=== PATIENT | female | born 1990 | race Caucasian/White ===

== ENCOUNTER 2021-02-07 21:04 | Emergency (ER) | payer BC, OTHER ==
--- NOTE | 2021-02-07 21:23 | EDM.PDOC ---
ED HPI GENERAL MEDICAL PROBLEM - General Stated Complaint: PAIN DOWN L SIDE Time Seen by Provider: 02/07/21 21:15 Source of Information: Reports: Patient History Limitations: Reports: No Limitations - History of Present Illness INITIAL COMMENTS - FREE TEXT/NARRATIVE: Patient comes emergency department today with complaints of pain in the very low left abdomen. This patient is 4 para 3. Primary care optical designer is in [place]. This patient approximately 2 hours prior to arrival developed a 2/10 pain at the crease of her leg in her lower left abdomen. Pain kind of comes and goes on its own. Nothing makes it worse or better. She has no change in the functionality of her lower extremities. No loss of bowel or bladder. No paresthesias. She has not tried any Tylenol for the pain. She has no other abdominal pain. She has no nausea or vomiting. No fever no chills. No hematuria dysuria urinary frequency. No flank pain. No vaginal bleeding or discharge. left lower abdomen Pain Score (Numeric/FACES): 3 - Related Data Allergies Allergy/AdvReac Type Severity Reaction Status Date / Time No Known Allergies Allergy Verified 04/20/15 17:36 Home Meds: Home Meds . [No Known Home Meds] 02/07/21 [History] Past Medical History - Past Health History Medical/Surgical History: Denies Medical/Surgical History ED ROS GENERAL - Review of Systems Review Of Systems: Comprehensive ROS is negative, except as noted in HPI. ED EXAM, GENERAL - Physical Exam Exam: See Below Exam Limited By: No Limitations General Appearance: Alert, WD/WN, No Apparent Distress, Obese (morbidly) Respiratory/Chest: No Respiratory Distress, Lungs Clear, Normal Breath Sounds, No Accessory Muscle Use, Chest Non-Tender Cardiovascular: Normal Peripheral Pulses, Regular Rate, Rhythm, No Murmur GI/Abdominal: Normal Bowel Sounds, Soft, Non-Tender, No Distention, No Abnormal Bruit, No Mass Back Exam: Normal Inspection, Full Range of Motion. No: CVA Tenderness (L), CVA Tenderness (R) Extremities: Normal Inspection, Normal Range of Motion, Non-Tender, No Pedal Edema, Normal Capillary Refill Neurological: Alert, Oriented, CN II-XII Intact, Normal Gait, Normal Reflexes, No Motor/Sensory Deficits, Other (Negative straight leg raise bilaterally) Psychiatric: Normal Affect, Normal Mood Skin Exam: Warm, Dry, Intact, Normal Color, No Rash Course - Vital Signs Last Recorded V/S: Last Vital Signs Temp 97.9 F 02/07/21 21:04 Pulse 80 02/07/21 21:04 Resp 16 02/07/21 21:04 BP 142/82 H 02/07/21 21:04 Pulse Ox 100 02/07/21 21:04 - Orders/Labs/Meds Labs: Laboratory Tests 02/07/21 Range/Units 21:20 Urine Color Yellow (YELLOW) Urine Appearance Clear (CLEAR) Urine pH 5.5 (5.0-8.0) Ur Specific [place] 1.015 Urine Protein Negative (NEGATIVE) mg/dL Urine Glucose (UA) Negative (NEGATIVE) mg/dL Urine Ketones Negative (NEGATIVE) mg/dL Urine Occult Blood Negative (NEGATIVE) Urine Nitrite Negative (NEGATIVE) Urine Bilirubin Negative (NEGATIVE) Urine Urobilinogen 1.0 (0.2) EU/dL Ur Leukocyte Esterase Negative (NEGATIVE) - Re-Assessments/Exams Free Text/Narrative Re-Assessment/Exam: Unable to Doppler heart tones although we are only 12 weeks out this may be difficult. Her urinalysis is noninfectious nor is there any blood concerning for kidney stone. This is most likely round ligament pain. She is clearly in no distress. We will have her use Tylenol for pain tonight. She has had a ultrasound in the clinic already with an identified intrauterine so I am unconcerned for ectopic . Have her follow-up by phone with her PCP optical designer tomorrow. Discharge directions as below are explained to the patient she was comfortable with this plan and her questions are answered. Departure - Departure Time of Disposition: 21:47 Disposition: Home, Self-Care 01 Clinical Impression: 12 weeks gestation of , Round ligament pain - Discharge Information Referrals: Sandrine Larios MD [Primary Care Provider] - Additional Instructions: Drink plenty of fluids over the next few days. Tylenol as needed for pain. Contact your PCP ob tomorrow for follow up. Return to the ED if new or worsening symptoms. Sepsis Event Note (ED) - Focused Exam Vital Signs: Vital Signs Temp Pulse Resp BP Pulse Ox 02/07/21 21:04 97.9 F 80 16 142/82 H 100
== END 2021-02-07 22:00 | disposition home or self-care (01) ==
LOC: VM.ED 21:04
DX: O99.891 Other specified diseases and conditions complicating pregnancy (principal); R10.2 Pelvic and perineal pain; Z3A.12 12 weeks gestation of pregnancy
CPT/HCPCS: 81003; 99283; 99284

== ENCOUNTER 2021-08-18 01:50 | Emergency (ER) | payer OTHER, MEDICAID ==
[2021-08-18 03:06] LABS: ANION GAP 14.8 mmol/L (5-15); CHLORIDE,CL 103 mmol/L (98-107); SODIUM,NA 139 mmol/L (136-145)
== END 2021-08-18 03:21 | disposition home or self-care (01) ==
LOC: VM.ED 01:50
DX: M54.50 Low back pain, unspecified (principal)
CPT/HCPCS: 36415; 80053; 81001; 85025; 87086; 99283; 99284

== ENCOUNTER 2024-09-18 22:11 | Emergency (ER) | payer BC, MEDICAID, OTHER ==
[2024-09-18] MEDS: Cyclobenzaprine 10 MG Tab PO ONE (22:43)
[2024-09-18] MEDS: Take Home: Naproxen 500 MG Tab, 4 Tab Pack PO ONE (22:43)
[2024-09-18] MEDS: Take Home: Cyclobenzaprine 10 MG Tab, 4 Tab Pack PO ONE (22:43)
[2024-09-18] MEDS: Naproxen 500 MG Tab PO ONE (22:43)
== END 2024-09-18 22:47 | disposition home or self-care (01) ==
LOC: VM.ED 22:11
DX: M94.0 Chondrocostal junction syndrome [Tietze] (principal); Z79.899 Other long term (current) drug therapy
CPT/HCPCS: 99283; A9270-GY